=== PATIENT | male | born 1990 | race Caucasian/White ===

== ENCOUNTER 2016-08-23 01:39 | Emergency (ER) | payer BC ==
[~2016-08-23] VITALS: Ht 188 cm; Wt 65.2 kg
[2016-08-23] MEDS ORDERED: HYDROcodone/APAP 5/325 TABLET ONE (02:29)
[2016-08-23] MEDS ORDERED: HYDROcodone/APAP 5/325 TABLET PO ONE (02:30)
[2016-08-23] MEDS ORDERED: LIDOCAINE 1%, 20ML ONE (02:48)
[2016-08-23] MEDS ORDERED: LIDOCAINE 1%, 20ML INFIL ONE (03:00)
[2016-08-23 03:07] VITALS: BP 111/51
== END 2016-08-23 05:07 | disposition left against medical advice (07) ==
LOC: ED 03:22
DX: S01.01XA Laceration without foreign body of scalp, initial encounter (principal); F17.200 Nicotine dependence, unspecified, uncomplicated; V13.4XXA Pedal cycle driver injured in collision with car, pick-up truck or van in traffic accident, initial encounter; Y93.55 Activity, bike riding; Y99.8 Other external cause status; Y92.488 Other paved roadways as the place of occurrence of the external cause
CPT/HCPCS: 12001; 70450; 71010; 72125; 99284; J3490

== ENCOUNTER 2016-08-29 13:14 | Emergency (ER) | payer BC ==
[~2016-08-29] VITALS: Ht 188 cm; Wt 65.7 kg
[2016-08-29 13:34] VITALS: BP 124/69
== END 2016-08-29 13:52 | disposition home or self-care (01) ==
LOC: ED 13:30
DX: S01.01XD Laceration without foreign body of scalp, subsequent encounter (principal); X58.XXXD Exposure to other specified factors, subsequent encounter
CPT/HCPCS: 99281

== ENCOUNTER 2018-10-25 17:37 | Emergency (ER) | payer MEDICAID ==
[~2018-10-25] VITALS: Ht 188 cm; Wt 67.4 kg
[2018-10-25 17:42] VITALS: BP 95/49
--- NOTE | 2018-10-25 17:50 | NUR ---
ISO CART WAS PLACED AT DOOR
--- NOTE | 2018-10-25 17:50 | NUR ---
HERE 1 WEEK AGO FOR A LEG WOUND ON ANTIBIOTIC PT REPORTS NEW RED SPOTS ON THE LEG AND NOW THE LEFT ARM PER TRIAGE NOTE
== END 2018-10-25 18:49 | disposition home or self-care (01) ==
LOC: ED 18:05
DX: R21 Rash and other nonspecific skin eruption (principal); Z72.9 Problem related to lifestyle, unspecified; F17.200 Nicotine dependence, unspecified, uncomplicated
CPT/HCPCS: 99283